=== PATIENT | male | born 2000 | race Caucasian/White ===

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

== ENCOUNTER 2022-02-27 00:20 | Emergency (ER) | payer OTHER ==
[2022-02-27 00:26] VITALS: BMI 40.9
[2022-02-27] MEDS ORDERED: ACETAMINOPHEN 1000 MG/100 ML BAG IVPB ONE (03:30)
[2022-02-27] MEDS ORDERED: ACETAMINOPHEN INJECTION 100 ML IVPB ONE (03:37)
[2022-02-27 04:10] LABS: BASO % 0.7 % (0-2.0); EOS % 0.4 % (0-4.5); HEMATOCRIT 42.1 % (35.4-49); LYMPH % 31.8 % (8-40); MCH 27.9 pg (25.7-33.7); MCHC 33.2 g/dl (32.0-35.9); MEAN CELL VOLUME 84.2 fl (80-96); MEAN PLT VOLUME 9.3 fl (7.5-11.1); MONO % 7.1 % (3.8-10.2); PLATELET COUNT 282 10^3/uL (134-434); RBC 5.01 M/mm3 (4.00-5.60); RDW 13.7 % (11.9-15.9); WHITE BLOOD COUNT 12.6 K/mm3 (4.0-10.0)
[2022-02-27 04:22] LABS: INR 1.06 (0.83-1.09); PROTHROMBIN TIME (PATIENT) 12.2 SEC (9.7-13.0)
[2022-02-27 04:31] LABS: CALCIUM 9.8 mg/dL (8.5-10.1)
[2022-02-27 04:32] LABS: ALBUMIN 3.9 g/dl (3.4-5.0); MAGNESIUM 1.9 mg/dL (1.8-2.4)
[2022-02-27 04:35] LABS: CREATININE 0.8 mg/dL (0.55-1.3)
[2022-02-27 04:36] LABS: BILIRUBIN,TOTAL 0.5 mg/dL (0.2-1); TOT PROT 8.1 g/dl (6.4-8.2)
[2022-02-27 05:33] VITALS: BP 123/60; PULSE 72; RESP 14; TEMP 98.3
== END 2022-02-27 06:03 | disposition home or self-care (01) ==
LOC: JER 00:20
PROC: 3E0333Z Introduction of Anti-inflammatory into Peripheral Vein, Percutaneous Approach (ICD-10-PCS; principal; 2022-02-27)
DX: R06.02 Shortness of breath (principal); R07.89 Other chest pain
CPT/HCPCS: 0241U-QW; 36415; 71046-TC-FY; 80053; 83735; 84484; 85025; 85379; 85610; 85730; 93005; 93010; 99285-25

== ENCOUNTER 2022-04-06 18:43 | Emergency (ER) | payer OTHER ==
[2022-04-06 18:49] VITALS: BP 135/71; RESP 19; TEMP 97.9; BMI 41.9
[2022-04-06 19:47] LABS: BASO % 0.5 % (0-2.0); EOS % 0.9 % (0-4.5); HEMATOCRIT 38.8 % (35.4-49); HEMOGLOBIN 13.1 GM/dL (11.7-16.9); LYMPH % 22.9 % (8-40); MCH 28.4 pg (25.7-33.7); MCHC 33.7 g/dl (32.0-35.9); MEAN CELL VOLUME 84.3 fl (80-96); MEAN PLT VOLUME 8.5 fl (7.5-11.1); MONO % 7.8 % (3.8-10.2); NEUT % 67.9 % (42.8-82.8); PLATELET COUNT 357 10^3/uL (134-434); RDW 13.8 % (11.9-15.9); WHITE BLOOD COUNT 12.3 K/mm3 (4.0-10.0)
[2022-04-06 20:02] LABS: ALBUMIN 3.7 g/dl (3.4-5.0); BLOOD UREA NITROGEN 13.7 mg/dL (7-18); CALCIUM 9.5 mg/dL (8.5-10.1)
[2022-04-06 20:06] LABS: CREATININE 1.1 mg/dL (0.55-1.3)
[2022-04-06 20:07] LABS: BILIRUBIN,TOTAL 0.3 mg/dL (0.2-1); TOT PROT 7.8 g/dl (6.4-8.2)
[2022-04-06 20:37] VITALS: PULSE 96
== END 2022-04-06 20:51 | disposition home or self-care (01) ==
LOC: JER 18:43 → JERFT 18:43
DX: R07.9 Chest pain, unspecified (principal)
CPT/HCPCS: 36415; 71046-TC-FY; 80053; 84484; 85025; 93005; 93010; 99284-25

== ENCOUNTER 2023-06-23 14:00 | Emergency (ER) | payer OTHER ==
[2023-06-23 14:05] VITALS: BP 143/85; PULSE 99; RESP 20; TEMP 98.3; BMI 46.3
[2023-06-23] MEDS ORDERED: IBUPROFEN 600 MG TABLET (FP) PO ONE (14:29)
[2023-06-23] MEDS: IBUPROFEN 600 MG TABLET (FP) PO ONE (14:31)
== END 2023-06-23 14:42 | disposition home or self-care (01) ==
LOC: JERFT 14:00
DX: S01.531A Puncture wound without foreign body of lip, initial encounter (principal); W22.8XXA Striking against or struck by other objects, initial encounter
CPT/HCPCS: 99283-25

== ENCOUNTER 2024-12-03 20:06 | Inpatient (IN) | payer OTHER ==
[2024-12-03 20:32] LABS: EPI CELLS 13 /uL (0-25.1); HYALINE CASTS 5 /uL (0-3.1); URINE APPEARANCE TURBID; URINE BACTERIA 579 /uL (0-1359); URINE BILIRUBIN 2+ (NEGATIVE); URINE COLOR DK YELLOW; URINE GLUCOSE (UA) NEGATIVE (NEGATIVE); URINE KETONE TRACE (NEGATIVE); URINE LEUK ESTERASE 3+ (NEGATIVE); URINE NITRITE NEGATIVE (NEGATIVE); URINE PROTEIN 2+ (NEGATIVE); URINE RBC 1208 /uL (0-23.9); URINE UROBILINOGEN >=8.0 E.U./dl mg/dL (0.2-1.0); URINE WBC 16986 /uL (0-25.8)
[2024-12-03] MEDS ORDERED: ONDANSETRON 4 MG/2 ML VIAL ONE (21:49)
[2024-12-03 22:08] LABS: ABSOLUTE IMMATURE GRANULOCYTES 0.11 x10^3/uL (0.0-0.031); BASOPHILS # 0.04 x10^3/uL (0.01-0.08); EOSINOPHIL % 0.0 % (0.8-7.0); EOSINOPHILS # 0.00 x10^3/uL (0.04-0.54); MCHC 33.0 g/dl (32.3-36.5); MEAN CELL VOLUME 84.8 fl (79.0-92.2); MEAN PLT VOLUME 10.7 fl (9.4-12.4); MONOCYTE # 1.30 x10^3/uL (0.30-0.82); MONOCYTE % 6.4 % (5.3-12.2); RDW 13.1 % (11.9-15.3)
[2024-12-03] MEDS: ONDANSETRON 4 MG/2 ML VIAL IVPUSH ONE (22:10)
[2024-12-03] MEDS: SODIUM CHLORIDE 1,000 ML IV STA (22:10)
[2024-12-03] MEDS: morphine CARPU-JECT 4 MG/1 ML DISP.SYRIN IVPUSH ONE (22:10)
[2024-12-03 22:42] LABS: CO2 28.0 mmol/L (21-32)
[2024-12-03 22:43] LABS: GLUCOSE,RANDOM 109.0 mg/dL (74-106)
[2024-12-03 22:45] LABS: CREATININE 1.0 mg/dL (0.55-1.3); SGOT/AST 24.0 U/L (15-37); SGPT/ALT 41.0 U/L (13-61)
[2024-12-03 22:47] LABS: TOT PROT 7.7 g/dl (6.4-8.2)
[2024-12-03 22:48] LABS: ALK PHOS 125.0 U/L (45-117)
[2024-12-03 23:37] LABS: HIV INTERPRETATION NEGATIVE (NEGATIVE)
[2024-12-03 23:38] LABS: HCV DIAGNOSTIC IN-HOUSE W/RFLX NON-REACTIVE (NONREACTIVE)
[2024-12-04] MEDS ORDERED: CEFTRIAXONE 1 GM/50 ML BAG ONE (00:51)
[2024-12-04] MEDS: CEFTRIAXONE 1,000 MG in DEXTROSE 5%-WATER - 50 ML IVPB ONE (01:01)
[2024-12-04 01:02] LABS: BG HCT 39.0 % (35.4-49); VENOUS BASE EXCESS -1.8 mmol/L (-2-2); VENOUS O2 SATURATION 93.9 % (70-80); VENOUS PCO2 37.8 mmHg (38-52); VENOUS PH 7.396 (7.310-7.410)
[2024-12-04] MEDS: KETOROLAC TROMETHAMINE 30 MG/1 ML VIAL IVPUSH ONE (01:02)
[2024-12-04] MEDS ORDERED: KETOROLAC TROMETHAMINE 30 MG/1 ML VIAL ONE (01:04)
[2024-12-04] MEDS ORDERED: DOXYCYCLINE HYCLATE 100 MG VIAL ONE (01:14)
[2024-12-04] MEDS: DOXYCYCLINE INJECTION 100 MG in DEXTROSE 5%-WATER 100 ML IVPB ONE (01:18)
[2024-12-04] MEDS ORDERED: ACETAMINOPHEN 1000 MG/100 ML BAG IVPB PRN (01:39)
[2024-12-04] MEDS: morphine CARPU-JECT 2 MG/1 ML DISP.SYRIN IVPUSH PRN (02:53)
[2024-12-04] MEDS: SODIUM CHLORIDE 1,000 ML IV STA (06:04)
[2024-12-04] MEDS: SODIUM CHLORIDE 1,000 ML IV SCH (07:16)
[2024-12-04 09:06] LABS: ABSOLUTE IMMATURE GRANULOCYTES 0.13 x10^3/uL (0.0-0.031); BASOPHILS # 0.05 x10^3/uL (0.01-0.08); EOSINOPHIL % 0.1 % (0.8-7.0); EOSINOPHILS # 0.02 x10^3/uL (0.04-0.54); MCHC 32.9 g/dl (32.3-36.5); MEAN CELL VOLUME 86.7 fl (79.0-92.2); MEAN PLT VOLUME 11.1 fl (9.4-12.4); MONOCYTE # 1.76 x10^3/uL (0.30-0.82); MONOCYTE % 9.1 % (5.3-12.2); RDW 13.2 % (11.9-15.3)
[2024-12-04] MEDS: ENOXAPARIN NA (PORCINE) 40 MG/0.4 ML DISP.SYRIN SQ SCH (09:50)
[2024-12-04] MEDS: CEFTRIAXONE 1 GM in DEXTROSE 5%-WATER - 50 ML IVPB SCH (09:50)
[2024-12-04 10:06] LABS: CO2 26.0 mmol/L (21-32)
[2024-12-04 10:07] LABS: GLUCOSE,RANDOM 94.0 mg/dL (74-106)
[2024-12-04 10:08] LABS: ALK PHOS 124.0 U/L (45-117); SGOT/AST 40.0 U/L (15-37); SGPT/ALT 51.0 U/L (13-61); TOT PROT 7.2 g/dl (6.4-8.2)
[2024-12-04 10:09] LABS: CREATININE 0.8 mg/dL (0.55-1.3)
[2024-12-04] MEDS ORDERED: DOXYCYCLINE HYCLATE 100 MG CAPSULE PO SCH (10:10)
[2024-12-04] MEDS: DOXYCYCLINE HYCLATE 100 MG CAPSULE PO SCH (10:11)
[2024-12-04] MEDS: DOXYCYCLINE HYCLATE 100 MG TABLET PO SCH (10:32)
[2024-12-04] MEDS ORDERED: TRIMETHOBENZAMIDE HCL 200MG/2ML INJ IM PRN (11:50)
[2024-12-04 13:16] VITALS: RESP 18; BMI 41.6
[2024-12-05] MEDS: ACETAMINOPHEN 325 MG TABLET (FP) PO PRN (01:14)
[2024-12-05 11:46] LABS: ABSOLUTE IMMATURE GRANULOCYTES 0.06 x10^3/uL (0.0-0.031); BASOPHILS # 0.03 x10^3/uL (0.01-0.08); EOSINOPHIL % 0.4 % (0.8-7.0); EOSINOPHILS # 0.05 x10^3/uL (0.04-0.54); MCHC 33.1 g/dl (32.3-36.5); MEAN CELL VOLUME 85.3 fl (79.0-92.2); MEAN PLT VOLUME 10.6 fl (9.4-12.4); MONOCYTE # 1.01 x10^3/uL (0.30-0.82); MONOCYTE % 7.3 % (5.3-12.2); RDW 13.0 % (11.9-15.3)
[2024-12-05 12:39] LABS: CO2 28.0 mmol/L (21-32); GLUCOSE,RANDOM 126.0 mg/dL (74-106)
[2024-12-05 12:40] LABS: SGPT/ALT 92.0 U/L (13-61)
[2024-12-05 12:41] LABS: ALK PHOS 139.0 U/L (45-117); SGOT/AST 59.0 U/L (15-37); TOT PROT 7.0 g/dl (6.4-8.2)
[2024-12-05 12:42] LABS: CREATININE 0.6 mg/dL (0.55-1.3)
[2024-12-06 09:17] VITALS: BP 120/69; PULSE 66; TEMP 97.9
[2024-12-06] MEDS: SULFAMETHOXAZOLE/TRIMETHOPRIM 800MG/160MG D.S. TABLET PO SCH (09:36)
[2024-12-06 11:03] LABS: ABSOLUTE IMMATURE GRANULOCYTES 0.06 x10^3/uL (0.0-0.031); BASOPHILS # 0.04 x10^3/uL (0.01-0.08); EOSINOPHIL % 0.6 % (0.8-7.0); EOSINOPHILS # 0.06 x10^3/uL (0.04-0.54); MCHC 32.6 g/dl (32.3-36.5); MEAN CELL VOLUME 84.3 fl (79.0-92.2); MEAN PLT VOLUME 10.9 fl (9.4-12.4); MONOCYTE # 0.92 x10^3/uL (0.30-0.82); MONOCYTE % 9.2 % (5.3-12.2); RDW 13.0 % (11.9-15.3)
[2024-12-06 11:46] LABS: CO2 26.0 mmol/L (21-32)
[2024-12-06 11:47] LABS: GLUCOSE,RANDOM 117.0 mg/dL (74-106)
[2024-12-06 11:49] LABS: SGOT/AST 47.0 U/L (15-37); SGPT/ALT 100.0 U/L (13-61)
[2024-12-06 11:50] LABS: CREATININE 0.6 mg/dL (0.55-1.3)
[2024-12-06 11:51] LABS: TOT PROT 6.6 g/dl (6.4-8.2)
[2024-12-06 11:52] LABS: ALK PHOS 135.0 U/L (45-117)
[2024-12-06] MEDS ORDERED: SULFAMETHOXAZOLE/TRIMETHOPRIM 800MG/160MG D.S. TABLET PO ONE (16:02)
== END 2024-12-06 16:35 | disposition home or self-care (01) | DRG 720 ==
LOC: JER 20:06 → JERBED 12-04 01:01 → OBSVTOIN 12-04 01:19 → J5S 12-04 02:49
PROVIDERS: ADMIT Internal Medicine; ATTEND Internal Medicine
DX: A41.9 Sepsis, unspecified organism (principal); Z68.41 Body mass index [BMI] 40.0-44.9, adult; N39.0 Urinary tract infection, site not specified; E66.01 Morbid (severe) obesity due to excess calories; B96.20 Unspecified Escherichia coli [E. coli] as the cause of diseases classified elsewhere; N20.0 Calculus of kidney; N45.1 Epididymitis; R80.9 Proteinuria, unspecified
CPT/HCPCS: 36415; 74176-TC; 76870-TC; 80053; 81003; 82248; 82803; 83605; 83690; 83735; 84100; 85025; 85651; 86140; 86803; 87040; 87086; 87389; 87491; 87591; 87637-QW; 99285-25; G0378